=== PATIENT | male | born 1955 | race Caucasian/White ===

== ENCOUNTER 2017-11-27 08:19 | Emergency (ER) | payer OTHER, BC ==
[2017-11-27 08:39] VITALS: BP 136/93; PULSE 83; RESP 20; TEMP 98.1; O2SAT 96
--- NOTE | 2017-11-27 09:25 | RAD ---
Date of service: 11/27/2017 PROCEDURE: Left Foot Radiographs. HISTORY: L metatarsal pain 4/5 COMPARISON: None. FINDINGS: BONES: Oblique nondisplaced fracture mid 4th proximal phalangeal diaphysis. No other fracture identified. JOINTS: Normal. SOFT TISSUES: Normal. OTHER FINDINGS: None. IMPRESSION: Fracture 4th proximal phalangeal diaphysis.
--- NOTE | 2017-11-27 09:30 | C.PDOC ---
History Of Present Illness 62 year old male presents to the ED for an evaluation of left fourth and fifth metatarsals pain status post accidentally kicking left foot against step on his way to work this morning. He denies any numbness, weakness, tingling or any other injuries/trauma. Time Seen by Provider: 11/27/17 08:53 Chief Complaint (Nursing): Lower Extremity Problem/Injury History Per: Patient History/Exam Limitations: no limitations Onset/Duration Of Symptoms: Hrs Current Symptoms Are (Timing): Still Present - Ankle/Foot Description Of Injury: Struck Against Object Past Medical History Reviewed: Historical Data, Nursing Documentation, Vital Signs Vital Signs: Last Vital Signs Temp 98.1 F 11/27/17 08:36 Pulse 83 11/27/17 08:36 Resp 20 11/27/17 08:36 BP 136/93 H 11/27/17 08:36 Pulse Ox 96 11/27/17 08:36 - Medical History PMH: No Chronic Diseases Surgical History: No Surg Hx - [facility] Procedures CLOSURE SKIN & SUBCUTANEOUS NEC (09/14/14) TETANUS TOXOID ADMINIST (09/14/14) Family History: States: No Known Family Hx - Social History Hx Tobacco Use: Yes Hx Alcohol Use: No Hx Substance Use: No - Immunization History Hx Tetanus Toxoid Vaccination: Yes Hx Influenza Vaccination: No Hx Pneumococcal Vaccination: No Review Of Systems Except As Marked, All Systems Reviewed And Found Negative. Musculoskeletal: Positive for: Foot Pain (Left fourth and fifth metatarsals pain ) Neurological: Negative for: Weakness, Numbness Physical Exam - Physical Exam Appears: Non-toxic, No Acute Distress Skin: Warm, Dry Head: Atraumatic, Normacephalic Eye(s): bilateral: Normal Inspection Nose: Normal Oral Mucosa: Moist Chest: Symmetrical Extremity: Normal ROM, Tenderness (Tenderness to left fourth and fifth metatarsals ), No Deformity, No Swelling Extremity: Bilateral: Normal Color And Temperature, Normal ROM Pulses: Left Dorsalis Pedis: Normal, Right Dorsalis Pedis: Normal Neurological/Psych: Oriented x3, Normal Speech, Normal Motor, Normal Sensation ED Course And Treatment O2 Sat by Pulse Oximetry: 96 (RA) Pulse Ox Interpretation: Normal Medical Decision Making Medical Decision Making: Impression: Left fourth and fifth metatarsals tenderness Orders: Pepcid 20mg PO Motrin 600mg PO XR left foot Disposition - Disposition - Scribe Statement The provider has reviewed the documentation as recorded by the Scribe Shyla Cardoza All medical record entries made by the Adele were at my direction and personally dictated by me. I have reviewed the chart and agree that the record accurately reflects my personal performance of the history, physical exam, medical decision making, and the department course for this patient. I have also personally directed, reviewed, and agree with the discharge instructions and disposition.
--- NOTE | 2017-11-27 09:44 | C.PDOC ---
History Of Present Illness 62 year old male presents to the ED for an evaluation of left fourth and fifth metatarsals pain status post accidentally kicking left foot against step on his way to work this morning. He denies any numbness, weakness, tingling or any other injuries/trauma. Time Seen by Provider: 11/27/17 08:53 Chief Complaint (Nursing): Lower Extremity Problem/Injury History Per: Patient History/Exam Limitations: no limitations Onset/Duration Of Symptoms: Hrs Current Symptoms Are (Timing): Still Present - Ankle/Foot Description Of Injury: Struck Against Object Past Medical History Reviewed: Historical Data, Nursing Documentation, Vital Signs Vital Signs: Last Vital Signs Temp 98.1 F 11/27/17 08:36 Pulse 83 11/27/17 08:36 Resp 20 11/27/17 08:36 BP 136/93 H 11/27/17 08:36 Pulse Ox 96 11/27/17 11:18 - Medical History PMH: No Chronic Diseases Surgical History: No Surg Hx - [facility] Procedures CLOSURE SKIN & SUBCUTANEOUS NEC (09/14/14) TETANUS TOXOID ADMINIST (09/14/14) Family History: States: No Known Family Hx - Social History Hx Tobacco Use: Yes Hx Alcohol Use: No Hx Substance Use: No - Immunization History Hx Tetanus Toxoid Vaccination: Yes Hx Influenza Vaccination: No Hx Pneumococcal Vaccination: No Review Of Systems Musculoskeletal: Positive for: Foot Pain (Pain to left fourth and fifth metatarsals ) Neurological: Positive for: Weakness, Numbness Physical Exam - Physical Exam Appears: Non-toxic, No Acute Distress Skin: Warm, Dry Head: Atraumatic, Normacephalic Eye(s): bilateral: Normal Inspection Nose: Normal Oral Mucosa: Moist Neck: Supple Extremity: Normal ROM, Tenderness (Tenderness to left fourth and fifth metatarsals), No Deformity, No Swelling Pulses: Left Dorsalis Pedis: Normal, Right Dorsalis Pedis: Normal Neurological/Psych: Oriented x3, Normal Speech, Normal Motor, Normal Sensation, Normal Reflexes, Other (Distal CMS: Normal. No deficits. Neurovascularly intact. ) Gait: Steady ED Course And Treatment O2 Sat by Pulse Oximetry: 96 (RA) Pulse Ox Interpretation: Normal - Other Rad L foot X-Ray: Interpreted by Me (+ L 4th prox tarsal fx) Medical Decision Making Medical Decision Making: Impression: Left fourth and fifth metatarsals tenderness Orders: Pepcid 20mg PO Motrin 600mg PO XR left foot Patient instructed to apply ice to toe area 1/2 hour per hour nothing hot. Patient given surgical show to prevent toe squeezing and advised to wear open toe shoes. Patient instructed to follow-up in our outpatient Podiatry Clinic/ Dr[facility], for further eval. Disposition Doctor Will See Patient In The: Office Counseled Patient/Family Regarding: Studies Performed, Diagnosis - Disposition Referrals: [facility] [Outside] [facility] [Outside] [facility] [Outside] [facility] [Outside] Laura Felix DPM [Staff Provider] - Disposition: HOME/ ROUTINE Disposition Time: 09:44 Condition: GOOD Additional Instructions: ice packs to the toe area 1/2 hour per hour nothing hot Motrin 400-600 mg every 6 hours as needed for pain pepcid 20 mg @ night to prevent stomach irritation from the Motrin Surgical Shoe to prevent toe squeezing Wear open toe shoes Follow-up in our outpatient Podiatry Clinic/[facility], for further eval Call for an appointment for next week. Instructions: Toe Fracture Forms: [employer] ([place]rian) - Clinical Impression Clinical Impression: Toe fracture, left - Scribe Statement The provider has reviewed the documentation as recorded by the Isidroiblang Cardoza All medical record entries made by the Scribe were at my direction and personally dictated by me. I have reviewed the chart and agree that the record accurately reflects my personal performance of the history, physical exam, medical decision making, and the department course for this patient. I have also personally directed, reviewed, and agree with the discharge instructions and disposition.
== END 2017-11-27 10:18 | disposition home or self-care (01) ==
LOC: C.ER 08:19
DX: S92.512A Displaced fracture of proximal phalanx of left lesser toe(s), initial encounter for closed fracture (principal); W22.8XXA Striking against or struck by other objects, initial encounter; Y92.89 Other specified places as the place of occurrence of the external cause; Y99.0 Civilian activity done for income or pay